=== PATIENT | male | born 1985 | race Hispanic/Latino ===

== ENCOUNTER 2018-02-19 08:37 | Day surgery (SDC) | payer OTHER ==
[~2018-02-19] VITALS: Ht 174 cm; Wt 127.0 kg
[~2018-02-19 08:37] MED LIST: ACID CONTROL150 MG PO; ADVIL200 MG PO; CLINDAMYCIN HC300 MG PO; CYMBALTA30 MG PO; HYDROCODON-ACE1 EAC7 PO; LYRICA50 MG PO; NAPROXEN250 MG PO; NAPROXEN500 MG PO; NOHOMEMEDS; OXYCODONE-APAP1 EACH PO; PERCOCET 5/31 TABLET PO; TYLENOL325 M1 PO; XANAX1 MG PO; XANAX2 MG PO
== END 2018-02-19 10:20 | disposition home or self-care (01) ==
LOC: PAIN 08:37 → SDC 09:15 → PAIN 10:20
DX: M51.16 Intervertebral disc disorders with radiculopathy, lumbar region (principal); M47.816 Spondylosis without myelopathy or radiculopathy, lumbar region; E66.9 Obesity, unspecified; Z68.41 Body mass index [BMI] 40.0-44.9, adult; M79.7 Fibromyalgia; K21.9 Gastro-esophageal reflux disease without esophagitis; F17.200 Nicotine dependence, unspecified, uncomplicated; Z79.891 Long term (current) use of opiate analgesic; Z88.5 Allergy status to narcotic agent
CPT/HCPCS: J1100; J2250; J3010